=== PATIENT | male | born 1985 ===

== ENCOUNTER 2016-05-19 08:38 | Emergency (ER) | payer SELFPAY ==
[2016-05-19 08:50] VITALS: O2SAT 98
[2016-05-19 08:51] VITALS: BMI 33.2
[2016-05-19 08:53] VITALS: RESP 20
[2016-05-19] MEDS ORDERED: Iohexol 240 (50 ml) PO ONE (09:05)
[2016-05-19] MEDS ORDERED: Iohexol 240 (50 ml) ONE (09:05)
[2016-05-19 09:21] LABS: BASO # 0.1 K/uL (0.0-0.2); BASO % 0.8 % (0.0-2.0); EOS # 0.2 K/uL (0.0-0.7); EOS % 2.9 % (0.0-4.0); HEMATOCRIT 46.6 % (35.0-51.0); LYMPH # 3.3 K/uL (1.0-4.3); MEAN CORPUSCULAR HEMOGLOBIN 30.1 pg (27.0-31.0); MEAN CORPUSCULAR HGB CONC 33.8 g/dL (33.0-37.0); MONO # 0.7 K/uL (0.0-0.8); MONO % 8.7 % (0.0-10.0); NEUT # 3.6 K/uL (1.8-7.0); NEUT % 45.6 % (50.0-75.0); NRBC % 0.1 % (0.0-0.0); RED CELL DISTRIBUTION WIDTH 13.5 % (11.5-14.5); WHITE BLOOD COUNT 7.9 K/uL (4.8-10.8)
--- NOTE | 2016-05-19 09:29 | CP.PCM.CON ---
History of Present Illness - History of Present Illness History of Present Illness: GENERAL SURGERY CONSULT NOTE FOR DR. FOSTER 30yo M with PMHx of right inguinal hernia repair presents to the ED with right testicle swelling. The symptoms began about a week ago. He denies abdominal pain. Has some nausea but no vomiting. Unsure when he last passed flatus. His last bowel movement was 3 days ago but he states he normally goes every 4 days. PMHx: none Surgeries: open right inguinal hernia repair at [facility] 5 years ago Allergies: none Medications: aspirin Social history: social etoh, denies tobacco use or drug use Review of Systems - Review of Systems All systems: reviewed and no additional remarkable complaints except (as per HPI ) Past Patient History - Infectious Disease Hx of Infectious Diseases: None - Past Social History Smoking Status: Never Smoked - GENITOURINARY/GYNECOLOGICAL Hx Genitourinary Disorders: Yes Other/Comment: hernia repair; groin pain - PSYCHIATRIC Hx Substance Use: No - SURGICAL HISTORY Hx Surgeries: Yes Hx Herniorrhaphy: Yes (R hernia) - ANESTHESIA Hx Anesthesia: Yes Hx Anesthesia Reactions: No Meds Home Medications: Home Medication List Medication Instructions Recorded Confirmed Type traMADol [Ultram] 50 mg PO TID PRN #15 tab 05/19/16 Rx Allergies/Adverse Reactions: Allergies Allergy/AdvReac Type Severity Reaction Status Date / Time No Known Allergies Allergy Verified 03/15/16 09:03 Physical Exam - Constitutional Appears: Non-toxic, No Acute Distress - Head Exam Head Exam: ATRAUMATIC, NORMAL INSPECTION - Eye Exam Eye Exam: EOMI, Normal appearance - Respiratory Exam Respiratory Exam: NORMAL BREATHING PATTERN. absent: Respiratory Distress - Cardiovascular Exam Cardiovascular Exam: +S1, +S2 - GI/Abdominal Exam GI & Abdominal Exam: Hernia (Right inguinal), Soft. absent: Distended, Firm, Guarding, Tenderness Additional comments: Right testicle swollen, firm, nontender. - Neurological Exam Neurological exam: Alert, CN II-XII Intact, Oriented x3 - Psychiatric Exam Psychiatric exam: Normal Affect, Normal Mood - Skin Skin Exam: Dry, Normal Color, Warm Results - Vital Signs Recent Vital Signs: Last Vital Signs Temp 98.1 F 05/19/16 08:50 Pulse 72 05/19/16 08:50 Resp 20 05/19/16 08:50 BP 126/70 05/19/16 08:50 Pulse Ox 98 05/19/16 08:50 - Labs Result Diagrams: 05/19/16 09:18 05/19/16 09:18 Labs: Laboratory Results - last 24 hr 05/19/16 09:18 WBC 7.9 RBC 5.24 Hgb 15.8 Hct 46.6 MCV 89.0 MCH 30.1 MCHC 33.8 RDW 13.5 Plt Count 217 MPV 9.0 Neut % (Auto) 45.6 L Lymph % (Auto) 42.0 H Walsh % (Auto) 8.7 Eos % (Auto) 2.9 Baso % (Auto) 0.8 Neut # 3.6 Lymph # 3.3 Walsh # 0.7 Eos # 0.2 Baso # 0.1 Assessment & Plan - Assessment and Plan (Free Text) Assessment: 30yo M with PMHx of right inguinal hernia repair presents to the ED with right testicle swelling - CT with PO contrast, wait 4 hours for contrast to reach rectum - Further recommendations to follow pending results of CT - If pt not obstructed, can follow up as outpatient - Dicussed plan with Dr. Alexandra Young PGY-2
[2016-05-19 09:38] LABS: ALB/GLOB RATIO 1.3 (1.0-2.1); ALKALINE PHOSPHATASE 104 U/L (38-126); ALT/SGPT 37 U/L (21-72); AST/SGOT 25 U/L (17-59); BILIRUBIN,TOTAL 0.8 mg/dl (0.2-1.3); BLOOD UREA NITROGEN 14 mg/dl (9-20); CALCIUM 9.2 mg/dL (8.4-10.2); CARBON DIOXIDE 25 mmol/L (22-30); CHLORIDE 102 mmol/L (98-107); GFR AFRICAN-AMERICAN > 60; GLUCOSE,RANDOM 101 mg/dL (75-110); LIPASE 152 U/L (23-300); POTASSIUM 3.7 MMOL/L (3.6-5.0); SODIUM 141 mmol/l (132-148); TOTAL PROTEIN 8.1 G/DL (6.3-8.2)
--- NOTE | 2016-05-19 10:49 | US ---
HISTORY: R scrotal swelling TECHNIQUE: Realtime sonography through the scrotum with color and doppler flow. COMPARISON: None Available. FINDINGS: Limited assessment due to patient prior hernia repair surgery adjacent to the scrotum and distortion of the normal anatomy of the proximal scrotum. RIGHT TESTICLE: Measures 4.1 x 2.1 x 2.9 cm. Normal blood flow appreciated at the right testicle. The right testicle demonstrates heterogeneous echotexture and contains microcalcification. RIGHT EPIDIDYMIS: A right epididymis is not clearly visualized. LEFT TESTICLE: Measures 3.8 x 3 x 1.8 cm. The left testicle is also heterogeneous demonstrate microcalcification. LEFT EPIDIDYMIS: The left epididymis is not clearly visualized also. HYDROCELE: There is large right-sided hydrocele and small left-sided hydrocele P VARICOCELE: None. OTHER FINDINGS: None. IMPRESSION: Limited assessment as described above. Large right-sided hydrocele. Heterogeneous testes contain punctate calcification consistent testicular microlithiasis. No ultrasound evidence of discrete mass lesion or fluid collection in the testicles. Blood flow appreciated in both testicles. No ultrasound Doppler evidence of testicular torsion. The epididymis are not clearly visualized bilaterally.
[2016-05-19] MEDS ORDERED: Iohexol 300 100 ML IJ ONE (13:09)
[2016-05-19] MEDS ORDERED: Sodium Chloride 0.9% 50 ML IV ONE (13:09)
--- NOTE | 2016-05-19 14:03 | CT ---
PROCEDURE: CT Abdomen and Pelvis with contrast HISTORY: RLQ pain, scrotal hernia COMPARISON: None. TECHNIQUE: Contrast dose: 95 cc of Omnipaque 300 Radiation dose: Total exam DLP = 1310.05 mGy-cm. FINDINGS: LOWER THORAX: Unremarkable. LIVER: Mild hepatomegaly and mild steatosis are noted. The portal vein is patent. GALLBLADDER AND BILE DUCTS: Unremarkable. PANCREAS: Unremarkable. No gross lesion or ductal dilatation. SPLEEN: Unremarkable. ADRENALS: Unremarkable. No mass. KIDNEYS AND URETERS: Unremarkable. No hydronephrosis. No solid mass. VASCULATURE: Unremarkable. No aortic aneurysm. BOWEL: Unremarkable. No obstruction. No gross mural thickening. APPENDIX: Normal appendix. PERITONEUM: Unremarkable. No free fluid. No free air. LYMPH NODES: Unremarkable. No enlarged lymph nodes. BLADDER: Unremarkable. REPRODUCTIVE: Unremarkable. BONES: No acute fracture. OTHER FINDINGS: Postsurgical changes at the right inguinal suggestive of prior hernia repair. Trace amount of fluid seen at the right inguinal canal. Large cystic lesion versus hydroceles seen at the right aspect of the scrotum. IMPRESSION: Postsurgical changes suggestive of prior right inguinal hernia repair. Trace amount of fluid at the right inguinal canal. 11.2 x 8.2 centimeters cystic lesion versus hydrocele seen at the right aspect of the scrotum. No evidence of appendicitis. Mild hepatic steatosis.
--- NOTE | 2016-05-19 14:25 | ED PDOC ---
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 denies: Nausea, Vomiting, Diarrhea Exacerbating Factors: None Alleviating Factors: None Additional Complaint(s): 30yo male c/o worsening right groin pain radiating to scrotum, which has been growing in size with discomfort and tenderness. Denies fever, vomiting or diarrhea, denies urinary complaintrs. Past Medical History Reviewed: Historical Data, Nursing Documentation, Vital Signs Vital Signs: Last Vital Signs Temp 98 F 05/19/16 15:17 Pulse 78 05/19/16 15:17 Resp 20 05/19/16 15:17 BP 120/70 05/19/16 15:17 Pulse Ox 98 05/19/16 16:19 - Medical History PMH: No Chronic Diseases - Surgical History Surgical History: Hernia Repair (~3 yrs ago) - Family History Family History: States: Unknown Family Hx - Social History Current smoker - smoking cessation education provided: No Drugs: Denies - Immunization History Hx Tetanus Toxoid Vaccination: No Hx Influenza Vaccination: No Hx Pneumococcal Vaccination: No - Home Medications Home Medications: Ambulatory Orders Medication Instructions Recorded traMADol [Ultram] 50 mg PO TID PRN #15 tab 05/19/16 - Allergies Allergies/Adverse Reactions: Allergies Allergy/AdvReac Type Severity Reaction Status Date / Time No Known Allergies Allergy Verified 03/15/16 09:03 Review of Systems ROS Statement: Except As Marked, All Systems Reviewed And Found Negative Constitutional: Negative for: Fever, Chills ENT: Negative for: Ear Pain Respiratory: Negative for: Cough, Shortness of Breath Gastrointestinal: Positive for: Abdominal Pain. Negative for: Vomiting, Diarrhea Genitourinary Male: Positive for: Scrotal Pain. Negative for: Dysuria, Hematuria Physical Exam - Reviewed Nursing Documentation Reviewed: Yes Vital Signs Reviewed: Yes - Physical Exam Appears: Positive for: Well, Non-toxic, No Acute Distress Head Exam: Positive for: ATRAUMATIC, NORMAL INSPECTION, NORMOCEPHALIC Skin: Positive for: Normal Color, Warm, DRY Eye Exam: Positive for: EOMI, Normal appearance, PERRL ENT: Positive for: Normal ENT Inspection Neck: Positive for: Normal, Painless ROM Cardiovascular/Chest: Positive for: Regular Rate, Rhythm Respiratory: Positive for: CNT, Normal Breath Sounds Gastrointestinal/Abdominal: Positive for: Bowel Sounds, Soft, Tenderness (+ RLQ and groin tenderness) Male Genital Exam: Positive for: scrotum tenderness (R), other (enlarged tender scrotum) Back: Positive for: Normal Inspection Extremity: Positive for: Normal ROM Neurologic/Psych: Positive for: Alert, Oriented - Laboratory Results Result Diagrams: 05/19/16 09:18 05/19/16 09:18 - ECG O2 Sat by Pulse Oximetry: 98 Medical Decision Making Medical Decision Making: labs and CT report reviewed. CT reveals no intestinal hernia, rather large hydrocele. Pt states had "water drained" from hydrocele several months ago in [place]? Will DC w referral to urology and hydrocele instructions. Followup 1-3 days. Discussed w surgical team. Disposition - Clinical Impression Clinical Impression: Hydrocele - Patient ED Disposition Is Patient to be Admitted: No Counseled Patient/Family Regarding: Studies Performed, Diagnosis, Need For Followup, Rx Given - Disposition Referrals: FAMILY PROVIDER,NO [Primary Care Provider] - Jean Steward MD [Medical Doctor] - Disposition: Routine/Home Disposition Time: 15:05 Condition: STABLE Additional Instructions: Followup with urology for further testing and treatment options. Take pain medication as directed. Prescriptions: traMADol [Ultram] 50 mg PO TID PRN #15 tab PRN Reason: Pain, Moderate (4-7) Instructions: Hydrocele (ED), Testicle Pain (ED)
[2016-05-19 15:19] VITALS: BP 120/70; PULSE 78; TEMP 98
== END 2016-05-19 15:22 | disposition home or self-care (01) ==
LOC: H.ER 08:38
DX: N43.3 Hydrocele, unspecified (principal); R10.31 Right lower quadrant pain
CPT/HCPCS: 74177; 80053; 83690; 85025; 93975; 99283; Q9966; Q9967